=== PATIENT | female | born 1975 | race Caucasian/White ===

== ENCOUNTER 2017-11-22 10:37 | Emergency (ER) | END 2017-11-22 20:19 | disposition home or self-care (01) ==

== ENCOUNTER 2017-11-22 13:31 | Outpatient (CLI) | END 2017-11-22 15:30 | disposition home or self-care (01) ==

== ENCOUNTER 2019-04-28 14:30 | Inpatient (IN) | payer OTHER ==
[~2019-04-28] VITALS: Ht 157.5 cm; Wt 92.3 kg
[~2019-04-28 14:30] MED LIST: CEPH-443 PO; GLIP10TA14; INSU100C5; METF-849
[2019-04-28 14:53] VITALS: BP 135/75; PULSE 90; RESP 18; Ht 157.5 cm; Wt 92.3 kg
--- NOTE | 2019-04-28 14:59 | NSTRPT ---
NST Information Datetime Report Generated by CPN: 04/28/2019 14:59 Datetime: 04/24/2019 08:43 NST Information EGA: 38.0 Test Number: 5 Time on Monitor: 04/24/2019 09:13 Time off Monitor: 04/24/2019 09:57 NST Duration (Min): 44 Reason for NST: Diabetes Mellitus; Gestational Hypertension; Other Reason for NST Other: A2DM, Advanced Maternal Age Test and Monitor Explained: Monitor Explained; Test Explained; Verbalized Understanding Pulse: 84 Resp: 18 SBP: 140 DBP: 74 Test Evaluation NST Interventions: Reposition Patient; Acoustic Stimulation NST Interventions Other: 0944 REPOSITION TO MATERNAL LEFT 0946 FAS FOLLWED BY ACCEL TO 165 Patient States Movement: Present Contraction Frequency: NONE FHR Baseline : 145 Variability: Moderate 6-25bpm Accelerations: 15X15 Decelerations: None NST Results: Reactive Comments: To u/s YANELI 10.1 CM CEPHALIC FBS 99 Takes labetalol 100 mg BID, did take her medication this morning. Denies CAMPA, blurred vision, swell ing, epigastric pain. Reflexes 2+. This BP is consistant with other antepartum BPs rEPEAT bps 128/62, 131/66, 130/63 Electronically Signed By E-Signature: with User ID: [id number] Datetime: 04/21/2019 08:45 NST Information EGA: 37.4 NST Duration (Min): 46 Datetime: 04/16/2019 13:27 NST Information EGA: 36.6 NST Duration (Min): 27 Datetime: 04/13/2019 14:02 NST Information EGA: 36.3 NST Duration (Min): 22 Datetime: 04/09/2019 13:45 NST Information EGA: 35.6 Datetime: 04/09/2019 13:38 NST Duration (Min): 41
[2019-04-28] MEDS ORDERED: LACTATED RINGER'S 1,000 ML IV PRN (15:55)
[2019-04-28] MEDS ORDERED: LIDOCAINE 1% (MPF) 30 ML INJ INJ PRN (16:00)
[2019-04-28] MEDS ORDERED: OXYTOCIN 30 UNITS/LR 500 ML IV SCH ×2 (16:00)
[2019-04-28] MEDS ORDERED: OXYTOCIN 30 UNITS/LR 500 ML IV PRN (16:00)
[2019-04-28] MEDS ORDERED: AMPICILLIN 2 GM/NS (PMX) 100 ML IV ONE (16:00)
[2019-04-28] MEDS ORDERED: METHYLERGONOVINE 0.2 MG INJ IM PRN (16:00)
[2019-04-28] MEDS ORDERED: MISOPROSTOL 200 MCG TAB PR PRN (16:00)
[2019-04-28] MEDS ORDERED: BUTORPHANOL 2 MG INJ IV PRN ×2 (16:00)
[2019-04-28] MEDS ORDERED: CARBOPROST 250 MCG INJ IM PRN (16:00)
[2019-04-28] MEDS ORDERED: DEXTROSE 5%-LR 1,000 ML IV SCH (17:00)
[2019-04-28] MEDS: LACTATED RINGER'S 1,000 ML IV SCH (17:09)
[2019-04-28] MEDS ORDERED: ACCU-CHEK XX SCH ×2 (19:35→21:00)
--- NOTE | 2019-04-28 20:41 | PREOPHP ---
DATE OF ADMISSION: 04/28/2019 HISTORY OF PRESENT ILLNESS: Ms. Portia Amador is a 43-year-old 5, para 3, EDC 05/08/2019 intrauterine at 38 weeks and 3 days gestational age, was sent from Dr. Colon's office today for induction secondary to chronic hypertension and type 2 diabetes. She denies any headache, nausea, vomiting, shortness of breath, visual changes or epigastric pain. Again, her care took place with Dr. Colon. PAST MEDICAL HISTORY: Chronic hypertension, pregestational diabetes. MEDICATIONS: 1. Insulin regimen./ metformin 2. Labetalol. 3. vitamins. PAST SURGICAL HISTORY: None. OBSTETRICAL HISTORY: x3 vaginal delivery, x1 missed AB. GYNECOLOGIC HISTORY: 12, regular 3 to 4 days. Denies any sexually transmitted infections. Sexually active with 1 partner. SOCIAL HISTORY: Denies any smoking, drugs or alcohol. FAMILY HISTORY: None. REVIEW OF SYSTEMS: All within normal except history of present illness. PHYSICAL EXAMINATION: HEENT: Within normal. LUNGS: CTA bilateral. CARDIOVASCULAR: S1, S2. Regular rate, rhythm. ABDOMEN: Gravid, nontender. Negative CVA bilateral. EXTREMITIES: Negative edema. No calf tenderness. PELVIC: Vaginal exam: 1 to 2 cm dilated, 50% effaced, -3 station. heart tracing category 1. DIAGNOSTIC DATA: Ultrasound: Estimated weight of 3311 grams, 46th percentile. Positive GBS. ASSESSMENT: 1. Intrauterine at 38 weeks and 3 days' gestational age. 2. Advanced maternal age. 3. Chronic hypertension. 4. Pregestational diabetes. 5. Admitted for induction. PLAN: Admit the patient with Cytotec regimen for cervical ripening followed by Pitocin as needed. Risks, benefits and alternatives were explained. All questions were answered. The patient will be started on sliding scale for insulin regimen. Dictated By: MATTEO GALLEGOS/EMILY Conf#: [id number] DID#: [id number] MTDD
[2019-04-28] MEDS ORDERED: INSULIN ASPART [NOVOLOG] 3 ML PEN SC SCH (21:00)
[2019-04-28] MEDS: LABETALOL 100 MG TAB PO SCH (21:07)
[2019-04-28] MEDS: AMPICILLIN 1 GM/NS (PMX) 50 ML IV SCH (21:08)
[2019-04-28] MEDS ORDERED: ONDANSETRON 4 MG INJ IV PRN (22:30)
[2019-04-28] MEDS ORDERED: DIPHENHYDRAMINE 50 MG INJ IV PRN (22:30)
[2019-04-28] MEDS ORDERED: TRIMETHOBENZAMIDE 100 MG/ML VIAL IM PRN (22:30)
[2019-04-28] MEDS ORDERED: NALOXONE (0.4 MG/ML) INJ IV PRN (22:30)
--- NOTE | 2019-04-28 22:32 | PREAC ---
Date/Time of Note Date/Time of Note DATE: 04/28/19 TIME: 22:30 Anesthesia Eval and Record Evaluation Time Pre-Procedure Interview DATE: 04/28/19 TIME: 22:30 Age 43 Sex female NPO: 8 hrs Preoperative diagnosis LABOR PAIN Planned procedure LABOR EPIDURAL Past Medical History Past Medical History: Includes Cardio: HTN Endo: Diabetes : : (5), Para: (3), Gestational age: (41 WEEKS) Surgery & Anesthesia Issues No known issue Meds Anticoagulation: No Beta Danilo within 24 hr: No Reason Beta Danilo not given: Pt. not on B-Danilo Active Scripts Cephalexin* (Keflex*) 500 Mg Capsule, 500 MG PO QID for 7 Days, CAP Prov:SALEEM MORALES PA-C 11/22/17 Reported Medications Metformin* (Glucophage*) 500 Mg Tab 09/16/10 Glipizide* (Glipizide*) 10 Mg Tablet 09/16/10 Insulin Glargine,Hum.rec.anlog (Lantus) 100 U/Ml Cartridge 09/16/10 Current Medications Lactated Ringer's 1,000 ml @ 125 mls/hr Q8H IV Last administered on 04/28/19at 17:09; Admin Dose 125 MLS/HR; Start 04/28/19 at 16:30 Dextrose/Lactated Ringer's 1,000 ml @ 125 mls/hr Q8H IV ; Start 04/28/19 at 17:00 Ampicillin 50 ml @ 100 mls/hr Q4H IV Last administered on 04/28/19at 21:08; Admin Dose 100 MLS/HR; Start 04/28/19 at 20:00 Butorphanol Tartrate (Stadol) 1 mg Q2H PRN IV .PAIN SCALE 1-5; Start 04/28/19 at 16:00 Butorphanol Tartrate (Stadol) 2 mg Q2H PRN IV .PAIN SCALE 6-10; Start 04/28/19 at 16:00 Lidocaine (Xylocaine 1% (Mpf)) 30 ml ONCE PRN INJ .EPISIOTOMY; Start 04/28/19 at 16:00 Oxytocin/Lactated Ringer's 500 ml @ 500 mls/hr ONCE POST IV ; Start 04/28/19 at 16:00 Oxytocin/Lactated Ringer's 500 ml @ 125 mls/hr POST IV ; Start 04/28/19 at 16:00 Lactated Ringer's 1,000 ml @ 2,000 mls/hr Q30M PRN IV .ANESTHESIA Last administered on 04/28/19at 22:28; Admin Dose 2,000 MLS/HR; Start 04/28/19 at 15:55 Oxytocin/Lactated Ringer's 500 ml @ 0 mls/hr ONCE PRN IV .VAGINAL BLEEDING; Start 04/28/19 at 16:00 Methylergonovine Maleate (Methergine) 0.2 mg ONCE PRN IM .VAGINAL BLEEDING; Start 04/28/19 at 16:00 Carboprost Tromethamine (Hemabate) 250 mcg ONCE PRN IM .VAGINAL BLEEDING; Start 04/28/19 at 16:00 Misoprostol (Cytotec) 1,000 mcg ONCE PRN WV .VAGINAL BLEEDING; Start 04/28/19 at 16:00 Diagnostic Test (Pha) (Accu-Chek) 1 ea Q4 XX ; Start 04/28/19 at 21:00 Diagnostic Test (Pha) (Accu-Chek) 1 ea FBSPP XX ; Start 04/28/19 at 19:35 Insulin Aspart (Novolog Insulin Pen) Check Blood gluc... Q4 SC ; Start 04/28/19 at 21:00 Labetalol HCl (Normodyne) 100 mg BID PO Last administered on 04/28/19at 21:07; Admin Dose 100 MG; Start 04/28/19 at 21:00 Misoprostol (Cytotec 50 Mcg Capsule) 50 mcg Q4 PO ; Start 04/28/19 at 21:00; Stop 04/29/19 at 17:01 Meds reviewed: Yes Allergies Coded Allergies: No Known Allergy (Verified , 12/14/12) Allergies Reviewed: Yes Labs/Studies Labs Reviewed: Reviewed by anesthesiologist Result Diagram: 04/28/19 1615 04/28/19 1615 Laboratory Tests 04/28/19 16:15 Blood Bank Test 04/28/19 16:15 Antibody Screen NEGATIVE Blood Type B POSITIVE Rh Immune Globulin Candidate NO test: N/A Pre-procedure Exam Last vitals Vital Signs Date Temp Pulse Resp B/P (MAP) Pulse Ox O2 O2 Flow FiO2 Time Delivery Rate 04/28/19 98.7 90 18 135/75 98 Room Air 14:53 (95) Airway: Adequate mouth opening, Adequate thyromental dist Mallampati: Mallampati II Teeth: Normal Lung: Normal Heart: Normal ASA Physical Status ASA physical status: 3 Emergency: None Planned Anesthetic Neuraxial: Epidural Planned Pain Management Epidural Pre-operative Attestations Prior to commencing anesthesia and surgery, the patient was re-evaluated, there was verification of: *The patient's identity *The results of appropriate recent lab work and preoperative vital signs *The above evaluation not changing prior to induction *Anesthetic plan, risk benefits, alternative and complications discussed with patient/family; questions answered; patient/family understands, accepts and wishes to proceed. Benedict Mcqueen M.D. Apr 28, 2019 22:32
--- NOTE | 2019-04-28 23:21 | PAC ---
Date/Time of Note Date/Time of Note DATE: 04/28/19 TIME: 23:21 Post-Anesthesia Notes Post-Anesthesia Note Last documented vital signs Vital Signs Date Temp Pulse Resp B/P (MAP) Pulse Ox O2 O2 Flow FiO2 Time Delivery Rate 04/28/19 98.7 90 18 135/75 98 Room Air 14:53 (95) Activity: WNL Respiratory function: WNL Cardiovascular function: WNL Mental status: Baseline Pain reasonably controlled: Yes Hydration appropriate: Yes Nausea/Vomiting absent: Yes Benedict Mcqueen M.D. Apr 28, 2019 23:21
[2019-04-29] MEDS: LACTATED RINGER'S 1,000 ML IV SCH ×3 (00:59→20:09)
[2019-04-29] MEDS: AMPICILLIN 1 GM/NS (PMX) 50 ML IV SCH ×5 (01:01→17:37)
[2019-04-29] MEDS: FENTAnyl 2MCG/ML-ROPIV 0.2% 100 ML BAG EPI SCH ×3 (03:34→17:38)
[2019-04-29] MEDS ORDERED: OXYTOCIN 30 UNITS/LR 500 ML IV SCH ×2 (09:00→23:36)
--- NOTE | 2019-04-29 11:38 | QN ---
Documentation Comment patient seen and evaluated no complaints vs stable afebrile ab gravid nt extremity no edema no calf tenderness fhr cat 1 toco irregular ASSESSMENT: 1. Intrauterine at 38 weeks and 4 days' gestational age. 2. Advanced maternal age. 3. Chronic hypertension. 4. Pregestational diabetes. 5. Admitted for induction. p continue pitocin anticipate vaginal delivery MATTEO ORDOÑEZ MD Apr 29, 2019 11:38
[2019-04-29] MEDS ORDERED: MINERAL OIL LIGHT 10 ML VIAL TOP ONE (20:30)
[2019-04-29] MEDS: LABETALOL 100 MG TAB PO SCH ×2 (22:03→22:52)
[2019-04-29 22:52] VITALS: BP 134/62; PULSE 87; RESP 19
[2019-04-29] MEDS: MISOPROSTOL 50 MCG CAPSULE PO SCH ×2 (22:52→22:53)
--- NOTE | 2019-04-29 23:13 | LDN ---
Date/Time of Note Date/Time of Note DATE: 04/29/19 TIME: 23:08 Delivery Summary April 29, 2019 I was called to cover for delivery of the patient that was signed out by primary OB. Patient had been managed intrapartum by primary OB and was signed out for delivery. Weeks of Gestation 38 weeks and 5 days Placenta Delivered: Spontaneously Meconium: none Episiotomy: No Indication for episiotomy N/A Perineal laceration: 2 Laceration repair: Second-degree perineal laceration and first-degree left labial laceration repaired using 201 3-0 chromic Anesthesia type: Epidural Estimated blood loss: 300 Sponge & Needle done & correct: Yes All needle counts correct: Yes Any foreign bodies felt in the: No Infant Delivery Information Sex Sex: female Apgars 1 Minute: 9 5 Minute: 9 Suctioning Nose & mouth suctioned at qasim: Yes Delee suction performed: Yes Umbilical Cord Umbilical cord with: 3 Vessels Cord presentations: nuchal cord Nuchal cord present X: 1 Cord Blood was obtained: Yes ALEX MONTEJO MD Apr 29, 2019 23:13
[2019-04-29] MEDS: LACTATED RINGER'S 1,000 ML IV* SCH (23:36)
[2019-04-30] VITALS (7 sets, daily range): BP systolic 114–164; BP diastolic 64–90; PULSE 62–85; RESP 18–20
[2019-04-30] MEDS ORDERED: morphine 2 MG INJ IV PRN
[2019-04-30] MEDS ORDERED: LANOLIN HPA 1 PKT TOP PRN
[2019-04-30] MEDS ORDERED: MISOPROSTOL 200 MCG TAB PR PRN
[2019-04-30] MEDS ORDERED: ACETAMINOPHEN 325 MG TAB PO PRN
[2019-04-30] MEDS ORDERED: CARBOPROST 250 MCG INJ IM PRN
[2019-04-30] MEDS ORDERED: HYDROCODONE/APAP (5/325) TAB PO PRN
[2019-04-30] MEDS ORDERED: DIPHENHYDRAMINE 25 MG CAP PO PRN
[2019-04-30] MEDS ORDERED: ONDANSETRON 4 MG INJ IV PRN
[2019-04-30] MEDS ORDERED: OXYTOCIN 30 UNITS/LR 500 ML IV PRN
[2019-04-30] MEDS ORDERED: NACL 0.9% 3 ML SYG IV SCH
[2019-04-30] MEDS ORDERED: WITCH HAZEL/GLYCERIN PAD PR PRN
[2019-04-30] MEDS ORDERED: ZOLPIDEM 5 MG TAB PO PRN
[2019-04-30] MEDS: IBUPROFEN 600 MG TAB PO SCH ×4 (00:19→17:52)
[2019-04-30] MEDS: LACTATED RINGER'S 1,000 ML IV SCH ×2 (00:30→08:30)
[2019-04-30] MEDS ORDERED: LABETALOL HCL 20MG INJ IV PRN (04:00)
[2019-04-30] MEDS: ACCU-CHEK XX SCH ×5 (08:35→21:00)
[2019-04-30] MEDS: LACTATED RINGER'S 1,000 ML IV* SCH (08:55)
[2019-04-30] MEDS: SENNA/DOCUSATE NA (8.6MG/50MG) TAB PO SCH ×2 (08:56→20:45)
[2019-04-30] MEDS: metFORMIN 500 MG TAB PO SCH ×3 (08:57→20:45)
[2019-04-30] MEDS: LABETALOL 100 MG TAB PO SCH ×2 (08:58→20:48)
--- NOTE | 2019-04-30 23:37 | PN ---
Date/Time of Note Date/Time of Note DATE: 04/30/19 TIME: 23:33 OB Subjective Subjective Subjective Vaginal bleeding decreased. Denies any headache, blurred vision, epigastric p ain right upper quadrant pain. Ambulating. Breast-feeding. OB Objective Objective Objective General appearance: Alert and oriented x4 does not appear to be in any acute distress Abdomen: Soft, fundus firm and palpable 2 cm below the umbilicus and nontender Breast: No evidence of mastitis or fissure Extremities: No calf tenderness, no click no edema no cord palpable VS - Last 72 Hours, by Label Date Temp Pulse Resp B/P (MAP) Pulse Ox O2 O2 Flow FiO2 Time Delivery Rate 04/30/19 98.4 85 18 144/81 Room Air 20:00 (102) 04/30/19 98.1 64 20 129/64 Room Air 16:14 (85) 04/30/19 98.0 80 20 114/71 Room Air 11:49 (85) 04/30/19 97.8 68 20 137/71 08:00 (93) 04/30/19 97.5 62 18 144/90 Room Air 04:00 (108) 04/30/19 98.0 73 18 149/68 Room Air 01:20 (95) 04/30/19 98.2 78 18 164/77 Room Air 00:25 (106) 04/29/19 99.5 87 19 134/62 Room Air 22:52 (86) 04/28/19 98.7 90 18 135/75 98 Room Air 14:53 (95) Laboratory Tests Test 04/30/19 00:37 04/30/19 06:16 04/30/19 08:35 04/30/19 13:10 Hemoglobin 11.1 L Hematocrit 32.6 L Lab Scanned Report REFERENCE LAB Bedside Glucose 150 190 Test 04/30/19 17:47 04/30/19 22:22 Bedside Glucose 110 120 OB Assessment/Plan Other Assessment: Status post Induction for hypertension and GDM A2 Blood pressure currently mainly well controlled with labetalol 100 mg p.o. twice daily. Asymptomatic. GDM, A2. Pre-gestational diabetes. Patient was previously on insulin and metformin prior to . Currently on metformin, will start checking blood sugar fasting and prior to be meals and nightly Continue metformin 500 mg p.o. twice daily Patient to be on 2000 kcal ADA diet Consider coverage if needed by insulin sliding scale Nutrition consultation Consult if needed with hospice for management of blood sugar Routine care ALEX MONTEJO MD Apr 30, 2019 23:37
[2019-05-01] MEDS: IBUPROFEN 600 MG TAB PO SCH ×3 (00:33→11:40)
[2019-05-01 03:56] VITALS: BP 145/65; PULSE 77; RESP 18
[2019-05-01] MEDS: ACCU-CHEK XX SCH ×2 (07:58→11:50)
[2019-05-01] MEDS ORDERED: MEASLES,MUMPS,RUBELLA VACCINE INJ SC* ONE (09:00)
[2019-05-01] MEDS ORDERED: DIPHTH/TET/ACEL PERTUSS (ADULT) 0.5 ML VIAL IM* ONE (09:00)
[2019-05-01] MEDS ORDERED: VARICELLA VACCINE LIVE/PF 1,350 UNIT/0.5 ML ML SC* ONE (09:00)
[2019-05-01] MEDS: SENNA/DOCUSATE NA (8.6MG/50MG) TAB PO SCH (09:45)
[2019-05-01] MEDS: LABETALOL 100 MG TAB PO SCH (09:45)
[2019-05-01] MEDS: metFORMIN 500 MG TAB PO SCH ×2 (09:46→13:03)
--- NOTE | 2019-05-01 14:09 | PD.PPDC ---
PLASTIC ROLLER Discharge Instruction Diagnosis [id number] Final Diagnosis: Iakgg5n s/p Condition [id number] Patient Condition: Pxium7m Stable Diet [id number] Diet: Ucbde2e Resume Regular Diet Activity/Restrictions [id number] Activity: Daqtv4g May Shower Hffwu2Ho Restrictions: Xiewy5h No Lifting No Sexual Activity Nothing in the Vagina No Benavides No Tampons, douche Follow-up Follow-up with Physician: 2, Week/Weeks Return to clinic for Uedja5Au REIMBURSEMENT MANAGER Instructions: [id number] Fever greater than 101 Chills Worsening abdominal pain Excessive Vaginal Bleeding More than 2 pads per hour Unable to tolerate diet [id number] OB Instructions: Gqsoh9j Breast Tenderness Depression Blurried Vision Headache LINDSEY LOW MD May 01, 2019 14:09
--- NOTE | 2019-05-01 14:13 | DS ---
Date/Time of Note Date/Time of Note DATE: 05/01/19 TIME: 14:12 Obstetrical Discharge Record Final Diagnosis Final Diagnosis: Term delivered Vaginal Delivery Obstetrical Delivery: Spontaneous, Laceration, Repaired Condition on Discharge Physical Assessment Last Vitals: bp 120-140-/70-80's afebrile Voiding: Yes Bowel Movement: Yes Breast: Soft, non-tender Fundus: Firm Episiotomy: n/a Calf Tenderness: No Patient Condition: Stable LINDSEY LOW MD May 01, 2019 14:13
--- NOTE | 2019-05-02 16:16 | DELSUM ---
Delivery Summary A-C Datetime Report Generated by CPN: 05/02/2019 16:15 DELIVERY PERSONNEL Ad Clerk: Teresa, Leesa MATERNAL INFORMATION Delivery Anesthesia: Epidural Medications in Delivery: pitocin Delivery QBL (ml): 300 Placenta Cultured: No Maternal Complications: Other Other Maternal Complications: chronic HTN, DM TYPE 2, ADVANCED MATERNAL AGE LABOR SUMMARY EDC: 05/08/2019 00:00 No. Babies in Womb: 1 Attempted: No Labor Anesthesia: Epidural LABOR INFORMATION Reason for Induction: Chronic Hypertension; Maternal Diabetes Onset of Labor: 04/29/2019 12:23 Complete Dilatation: 04/29/2019 19:50 Group B Beta Strep: Positive Antibiotics # of Doses: 7 Antibiotics Time of Last Dose: 04/29/2019 17:30 Steroids Given: None Reason Steroids Not Administered: Not Applicable MEMBRANES Membranes Rupture Method: Artificial Rupture of Membranes: 04/29/2019 12:23 Length of Rupture (hr): 8.42 Amniotic Fluid Color: Clear Amniotic Fluid Amount: Moderate Amniotic Fluid Odor: None STAGES OF LABOR Stage 1 hr: 7 Stage 1 min: 27 Stage 2 hr: 0 Stage 2 min: 58 Stage 3 hr: 0 Stage 3 min: 3 Total Time in Labor hr: 8 Total Time in Labor min: 28 VAGINAL DELIVERY Episiotomy: None Laceration Extension: Second Degree Laceration Type: Perineal Other Laceration: and first degree left labial Laceration Repair: Yes Initial Vag Sponge Count: 10 Final Vag Sponge Count: 10 Initial Vag Sharps Count: 2 Final Vag Sharps Count: 4 Sponge Count Correct: Yes; Vaginal Sweep Performed Sharps Count Correct: Yes BABY A INFORMATION Infant Delivery Date/Time: 04/29/2019 20:48 Method of Delivery: Vaginal Born in Route : No : N/A Forceps: N/A Vacuum Extraction: N/A Shoulder Dystocia : N/A SHOULDER DYSTOCIA BABY A Delivery Date/Time: 04/29/2019 20:48 PRESENTATION/POSITION BABY A Presentation: Cephalic Cephalic Presentation: Vertex Vertex Position: Left Occipital Anterior Breech Presentation: N/A PLACENTA INFORMATION BABY A Placenta Delivery Time : 04/29/2019 20:51 Placenta Method of Delivery: Spontaneous Placenta Status: Delivered SCORES BABY A Heart Rate 1 min: >100 bpm Resp Effort 1 min: Good Cry Reflex Irritability 1 min: Cough/Sneeze/Pulls Away Muscle Tone 1 min: Active Motion Color 1 min: Body [place], Extremit Blue Resuscitation Effort 1 min: Tactile Stimulation SCORE 1 MIN: 9 Heart Rate 5 min: >100 bpm Resp Effort 5 min: Good Cry Reflex Irritability 5 min: Cough/Sneeze/Pulls Away Muscle Tone 5 min: Active Motion Color 5 min: Body [place], Extremit Blue Resuscitation Effort 5 min: Tactile Stimulation SCORE 5 MIN: 9 INFANT INFORMATION BABY A Gestational Age at Delivery: 38.5 Gestational Status: Early Term- 37- 38.6 Weeks Outcome : Liveborn, with signs of life Condition : Stable Infant Sex: Female IDENTIFICATION/MEDS BABY A ID Band Number: [id number] ID Band Location: Right Leg; Left Arm Sensor Applied: Yes Sensor Number: [id number] Sensor Location : Cord Clamp Vitamin K Given : Not Given Erythromycin Given: Not Given WEIGHT/LENGTH BABY A Infant Birthweight (gm): 3060 Weight (lb): 6 Weight (oz): 12 Infant Length (in): 18.50 Infant Length (cm): 46.99 CORD INFORMATION BABY A No. Cord Vessels: 3 Nuchal Cord : N/A Cord Blood Taken: Yes Infant Suction: Mouth; Nose ASSESSMENT BABY A Infant Complications: Multiple Variable Decels Physical Findings at Delivery: Within Normal Limits Respirations: Appears Normal Oil Tanker Captain/ALS Called : No Infant Care By: RN Transferred To: Remains with Mother
== END 2019-05-01 16:14 | disposition home or self-care (01) | DRG 805 ==
LOC: L-D 14:41 → PP1 04-29 22:48
PROVIDERS: ADMIT Obstetrics & Gynecology; ATTEND Obstetrics & Gynecology
PROC: 10E0XZZ Delivery of Products of Conception, External Approach (ICD-10-PCS; principal; 2019-04-29)
PROC: 0KQM0ZZ Repair Perineum Muscle, Open Approach (ICD-10-PCS; 2019-04-29)
DX: O10.92 Unspecified pre-existing hypertension complicating childbirth (principal); O24.12 Pre-existing type 2 diabetes mellitus, in childbirth; Z37.0 Single live birth; E11.9 Type 2 diabetes mellitus without complications; O70.1 Second degree perineal laceration during delivery; O69.81X0 Labor and delivery complicated by cord around neck, without compression, not applicable or unspecified; Z3A.38 38 weeks gestation of pregnancy
CPT/HCPCS: 62322; 76815; 80053; 80076; 82962; 85014; 85018; 85025; 85384; 85610; 85730; 86592; 86850; 86900; 86901; 90715; 90716; J0290; J1815; J2590; J3010; J7120; J7121

== ENCOUNTER 2019-07-14 18:20 | Emergency (ER) | payer OTHER ==
[~2019-07-14] VITALS: Ht 157.5 cm; Wt 92.3 kg
[~2019-07-14 18:20] MED LIST changes: +EPIN0.3P4 INJ; +HYDR-845 PO; +PRED20TA PO
[2019-07-14] MEDS ORDERED: FAMOTIDINE 20 MG TAB PO STA (18:44)
[2019-07-14] MEDS ORDERED: predniSONE 20 MG TAB PO STA (18:44)
[2019-07-14] MEDS ORDERED: DIPHENHYDRAMINE 50 MG CAP PO STA (18:44)
[2019-07-14 19:05] VITALS: BP 179/116; PULSE 96; RESP 20; Ht 157.5 cm; Wt 92.3 kg
== END 2019-07-15 07:54 | disposition home or self-care (01) ==
LOC: E/R 18:20
DX: L50.0 Allergic urticaria (principal); E11.9 Type 2 diabetes mellitus without complications; I10 Essential (primary) hypertension; Z79.4 Long term (current) use of insulin
CPT/HCPCS: J7512; Z7502; Z7610; 99283